=== PATIENT | female | born 1955 | race Caucasian/White ===

== ENCOUNTER 2020-05-19 15:05 | Outpatient (CLI) | payer OTHER, SELFPAY ==
--- NOTE | ~2020-05-19 | MM_ITS ---
EXAMINATION: MM screening [facility] BI w vladimir HISTORY: Screening mammogram TECHNIQUE: Craniocaudal and mediolateral oblique 3-D tomosynthesis images were obtained and synthetic 2-D images were generated. CAD analysis was submitted and interpreted. COMPARISON: 05/28/2018, 05/19/2018, 05/08/2017 BREAST PARENCHYMAL COMPOSITION: There are scattered areas of fibroglandular density. FINDINGS: Scattered benign-appearing calcifications are present. There is no evidence of suspicious m ass, calcification, or architectural distortion to suggest malignancy in either breast. There has bee n no suspicious interval change. IMPRESSION: 1. No mammographic evidence of malignancy. 2. Recommend routine screening mammography in one year. BI-RADS Category 2: Benign finding(s). Reviewed, dictated and finalized at location A.
== END 2020-05-19 15:06 | disposition home or self-care (01) ==
LOC: ANHIMG 15:33
PROVIDERS: PCP Nurse Practitioner Family; Visit Provider Nurse Practitioner Family
DX: Z12.31 Encounter for screening mammogram for malignant neoplasm of breast (principal)
CPT/HCPCS: 77063; 77067

== ENCOUNTER 2020-09-15 14:39 | Outpatient (CLI) | payer OTHER, SELFPAY ==
--- NOTE | ~2020-09-15 | XR_ITS ---
EXAMINATION: XR chest 2V 09/15/2020 15:20 INDICATION: Cough and shortness of breath. PROCEDURE: 2 view chest COMPARISON: 08/29/2016 FINDINGS: The lungs are clear. The cardiomediastinal silhouette is within normal limits. There are no pleural effusions. There is no pneumothorax suspected. IMPRESSION: 1: NO ACUTE CARDIOPULMONARY DISEASE. Reviewed, dictated and finalized at location A. ERS SUPERVISOR
== END 2020-09-15 14:40 | disposition home or self-care (01) ==
LOC: ANHIMG 14:46
PROVIDERS: PCP Family Medicine; Visit Provider Nurse Practitioner Family
DX: R05 Cough (principal)
CPT/HCPCS: 71046

== ENCOUNTER 2020-10-05 09:36 | Outpatient (CLI) | payer OTHER, SELFPAY ==
--- NOTE | 2020-10-05 09:39 | EST_ITS ---
Patient Info Name: Bess Miranda Age: 65 years : 1955 Gender: Female Ht: 61 in Wt: 190 lbs BSA: 1.97 m2 Exam Date: 10/05/2020 9:54 AM Exam Location: [facility] Stress Patient Status: Outpatient Admit Date: 10/05/2020 Staff Ordering Physician: Yumiko Quach NP Attending Provider: Yumiko Quach NP Exercise Technologist: Francisca Li RDCS Exercise Physician: Kai No DO Exam Type: CA stress test treadmill Study Info Indications R06.00 - Dyspnea, unspecified A treadmill exercise stress test was performed. Summary 1. 1. Negative Dung exercise stress test for ischemic ST changes by ECG criteria. 2. 2. Reduced functional capacity, achieving 6.5 METs of workload. 3. 3. Baseline hypertension. 4. 4. Appropriate HR response to exercise. 5. 5. Appropriate HR recovery at 1 minute post exercise. 6. 6. No imaging with stress testing. 7. 7. Patient informed of the above results. Protocol: Dung Stress ECG Details Stage: REST Duration (min): 2 min : 5 sec Speed (mph): 0.0 Grade (%): 0 HR (bpm): 77 SBP (mmHg): 163 DBP (mmHg): 94 METS: --- Stage: REST Duration (min): 14 min : 3 sec Speed (mph): 0.0 Grade (%): 0 HR (bpm): 78 SBP (mmHg): 163 DBP (mmHg): 94 METS: --- Stage: STAGE 1 Duration (min): 1 min : 0 sec Speed (mph): 1.7 Grade (%): 10 HR (bpm): 103 SBP (mmHg): 163 DBP (mmHg): 94 METS: --- Stage: STAGE 1 Duration (min): 2 min : 0 sec Speed (mph): 1.7 Grade (%): 10 HR (bpm): 117 SBP (mmHg): 163 DBP (mmHg): 94 METS: --- Stage: STAGE 1 Duration (min): 3 min : 0 sec Speed (mph): 1.7 Grade (%): 10 HR (bpm): 126 SBP (mmHg): 169 DBP (mmHg): 78 METS: --- Stage: STAGE 2 Duration (min): 1 min : 0 sec Speed (mph): 2.5 Grade (%): 12 HR (bpm): 140 SBP (mmHg): 169 DBP (mmHg): 78 METS: --- Stage: STAGE 2 Duration (min): 1 min : 0 sec Speed (mph): 2.5 Grade (%): 12 HR (bpm): 140 SBP (mmHg): 169 DBP (mmHg): 78 METS: --- Stage: RECOVERY Duration (min): 0 min : 59 sec Speed (mph): 0.0 Grade (%): 0 HR (bpm): 121 SBP (mmHg): 183 DBP (mmHg): 76 METS: --- Stage: RECOVERY Duration (min): 1 min : 59 sec Speed (mph): 0.0 Grade (%): 0 HR (bpm): 101 SBP (mmHg): 183 DBP (mmHg): 76 METS: --- Stage: RECOVERY Duration (min): 2 min : 59 sec Speed (mph): 0.0 Grade (%): 0 HR (bpm): 92 SBP (mmHg): 185 DBP (mmHg): 80 METS: --- Stage: RECOVERY Duration (min): 3 min : 59 sec Speed (mph): 0.0 Grade (%): 0 HR (bpm): 88 SBP (mmHg): 185 DBP (mmHg): 80 METS: --- Stage: RECOVERY Duration (min): 4 min : 59 sec Speed (mph): 0.0 Grade (%): 0 HR (bpm): 87 SBP (mmHg): 172 DBP (mmHg): 85 METS: --- Stage: RECOVERY Duration (min):
== END 2020-10-05 09:37 | disposition home or self-care (01) ==
PROVIDERS: PCP Nurse Practitioner Family; Visit Provider Nurse Practitioner Family
DX: R06.00 Dyspnea, unspecified (principal)
CPT/HCPCS: 93017

== ENCOUNTER 2020-10-26 09:36 | Outpatient (CLI) | payer OTHER, SELFPAY ==
--- NOTE | ~2020-10-26 | XR_ITS ---
EXAMINATION: XR hip LT 2V w AP pelvis DATE: 10/26/2020 09:55 INDICATION: Left hip pain post fall one month prior TECHNIQUE: Anteroposterior view of the pelvis and anteroposterior and frog-leg lateral views of the l eft hip were obtained. COMPARISON: None. FINDINGS: Mild lumbar levoscoliosis with moderate to severe spondylosis. Normal alignment at both hips. No frac ture or suspected avascular necrosis. Mild bilateral hip and sacroiliac osteoarthritis. IMPRESSION: 1. Mild bilateral hip and sacroiliac osteoarthritis. No acute osseous abnormality. 2. Mild lumbar levoscoliosis with moderate to severe spondylosis. Reviewed, dictated and finalized at location B. MAN IMPRESSION: 1. Mild bilateral hip and sacroiliac osteoarthritis. No acute osseous abnormali ty. 2. Mild lumbar levoscoliosis with moderate to severe spondylosis.
== END 2020-10-26 09:37 | disposition home or self-care (01) ==
LOC: ANHIMG 09:42
PROVIDERS: PCP Nurse Practitioner Family; Visit Provider Nurse Practitioner Family
DX: M25.552 Pain in left hip (principal); M16.0 Bilateral primary osteoarthritis of hip; M41.86 Other forms of scoliosis, lumbar region; M47.816 Spondylosis without myelopathy or radiculopathy, lumbar region
CPT/HCPCS: 73502

== ENCOUNTER 2020-12-06 17:15 | Outpatient (RCR) | payer OTHER, SELFPAY ==
--- NOTE | 2020-11-07 13:55 | PTOPEVAL ---
Thank you for referring Bess Miranda to [facility].? The patient is scheduled to be seen for therapy?2 x/week for 6 weeks. Please review, sign, date and return this plan of care ANDREWS. I agree with and certify that the following plan of care is medically necessary. Referring Physician Date Attending Provider: Yumiko Quach NP Referring Provider: Yumiko Quach NP Physical Therapy Evaluation Problem Diagnosis left hip pain Onset 6 months Subjective Information She has increased pain with Query Text:As Reported By Patient/ prolonged sitting. She has Family increased pain and limitations with steps, prolonged sitting in the car, initial pressure on left LE after prolonged sitting. She c/o LE fatigue with prolonged standing for cooking task. She is limited with carrying objects or squating motion. She has radiating left leg pain with bowel movement. C/o stiffness and cramping of LE's with supine position. She walks her dog daily for 20' without limitations. Diagnostic Tests X-Rays For This Problem Yes: Mild bilateral hip and sacroiliac osteoarthritis. Pain Assessment Left Hip(s) Reported Pain Level 0 Pain Description Aching,Numbness,Radiating, Tingling Pain Frequency Chronic Lowest Pain Intensity 0 Greatest Pain Intensity 6 Pain Aggravating Factors Coughing/Sneezing,Lifting, Prolonged Position,Sitting, Weight Bearing/Standing Pain Behaviors None Lower Extremity Range of Motion General Lower Extremity Range of Motion Reason Not Measured WNL/Left,WNL/Right Lower Extremity Muscle Strength Testing Hip Strength Right Hip Flexion Strength 4- Good - Hip Extension Strength 3 Fair Hip Abduction Strength 3- Fair - Left Hip Flexion Strength 3 Fair Hip Extension Strength 3 Fair Hip Abduction Strength 3- Fair - Knee Strength Right Knee Flexion Strength 3+ Fair + Knee Extension Strength 4+ Good + Left Knee Flexion Strength 3+ Fair + Knee Extension Strength 4+ Good + Ankle Strength Bilateral Ankle Dorsiflexion Strength 5 Normal Muscle Length Testing Two-Joint Hip Flexor Shortened Muscles Short (R) Iliopsoas,Short (L)
--- NOTE | 2020-12-04 12:38 | PCPTNOTE ---
Patient called & cancelled scheduled appointment this date due to conflict with appointment.
--- NOTE | 2020-12-19 07:58 | PCPTNOTE ---
Admitting Provider: Attending Provider: Yumiko Quach NP Patient:Bess Miranda Date of :1955 Discharge Note Patient has not returned for any further treatments since 12/06/2020, therefore she will be discharged at this time. Patient?s initial visit was on 11/07/2020 12:30 and she had a total of _ visits. The goals have been (met, not met, partially met). Thank you for referring this patient to [facility]. Please review, sign, date and return this discharge summary ANDREWS. I have been updated about the patient's current status and I agree with discharge from the above service at this time. Referring Physician Date
--- NOTE | 2020-12-19 07:58 | PCPTNOTE ---
Admitting Provider: Attending Provider: Yumiko Quach NP Patient:Bess Miranda Date of :1955 Discharge Note Patient has not returned for any further treatments since 12/06/2020, therefore she will be discharged at this time. Patient?s initial visit was on 11/07/2020 12:30 and she had a total of 7 visits with 4 cancelled visits. The goals have been not met. Thank you for referring this patient to [facility]. Please review, sign, date and return this discharge summary ANDREWS. I have been updated about the patient's current status and I agree with discharge from the above service at this time. Referring Physician Date
== END 2020-12-19 10:11 | disposition home or self-care (01) ==
LOC: ANHPT 17:15
PROVIDERS: PCP Nurse Practitioner Family; Referring Provider Nurse Practitioner Family; Visit Provider Nurse Practitioner Family
DX: M25.552 Pain in left hip (principal)
CPT/HCPCS: 97110; 97162; 97530

== ENCOUNTER 2021-08-18 08:20 | Emergency (ER) | payer OTHER, SELFPAY ==
--- NOTE | ~2021-08-18 | XR_ITS ---
EXAMINATION: XR ribs RT 2V w CXR 2V EXAM DATE: 08/18/2021 09:10 INDICATION: Right Lower Lateral rib pain, Leaned On Hard Surface, SOB . TECHNIQUE: Frontal projection of the upper right ribs, frontal projection of the lower right ribs, ob lique projection of the right ribs, frontal and lateral chest x-ray(s) for interpretation. Comparison is made to prior examination from 09/15/2020. FINDINGS: There is acute closed posttraumatic nondisplaced right 8th rib fracture anteriorly, finding indicated on the examination. No other rib fractures identified. There is mild lumbar levoscoliosis. No confluent consolidation, pneumothorax or pleural effusion suspected. Heart is upper limits of nor mal in size. IMPRESSION: Acute right 8th rib fracture. No pneumothorax. Reviewed, dictated and finalized at location A. NOMY RESEARCH MANAGER
[2021-08-18 08:26] VITALS: PULSE 112; RESP 22; TEMP 36.7; O2SAT 97
--- NOTE | 2021-08-18 08:58 | ED.GENADULT ---
HPI - General Adult General Chief complaint: Chest Pain Stated complaint: right rib injury Time Seen by Provider: 08/18/21 08:34 Source: patient Mode of arrival: ambulatory Limitations: no limitations History of Present Illness HPI narrative: Patient is a 66-year-old female complaining of right lower rib pain, 8 out of 10, sharp, worse with movement, palpation, coughing or deep breaths started after she was picking up something to throw in the dumpster and heard something pop, I think I broke my ribs , 3 days ago. Patient denies any shortness of breath, abdominal pain, nausea, vomiting, diaphoresis, fever or chills. Related Data Home Medications Medication Instructions Recorded Confirmed multivitamin 1 tablet PO DAILY 09/09/19 08/13/21 alendronate 70 mg-cholecalciferol 1 tablet PO WEEKLY 01/16/21 08/13/21 (vitamin D3) 2,800 unit tablet Allergies Allergy/AdvReac Type Severity Reaction Status Date / Time cyclobenzaprine Allergy Unknown Unknown Verified 08/13/21 11:11 Review of Systems Review of Systems: All systems reviewed & are unremarkable except as noted in HPI and below Constitutional: Constitutional: Denies body ache(s), Denies chills, Denies excessive sweating, Denies fatigue, Denies fever(s), Denies headache(s), Denies lethargy, Denies malaise, Denies weakness and Denies weight loss Eyes: Eyes: Denies blurry vision, Denies change in vision and Denies loss of vision ENT: Denies dizziness, Denies ear discharge, Denies headache(s), Denies lip swelling, Denies epistaxis, Denies nasal congestion, Denies neck pain, Denies throat swelling and Denies tongue swelling Cardiovascular: Cardiovascular: Denies chest pain, Denies chest pain at rest, Denies chest pain with activity, Denies diaphoresis, Denies rapid heart rate, Denies edema, Denies irregular heart rhythm, Denies lightheadedness, Denies palpitations, Denies dyspnea and Denies dyspnea on exertion Respiratory: Respiratory: Denies chest congestion, Denies cough, Denies hemoptysis, Denies dyspnea and Denies dyspnea on exertion Gastrointestinal: Gastrointestinal: Denies abdominal pain, Denies melena, Denies hematochezia, Denies diarrhea, Denies nausea, Denies vomiting and Denies hematemesis Musculoskeletal: Musculoskeletal: Denies abnormal gait, Denies deformity, Denies joint swelling, Denies limited range of motion, Denies neck pain and Denies numbness Neurologic: Denies Abnormal speech present, Denies abnormal gait, Denies confusion, Denies dizziness, Denies headache(s), Denies focal weakness, Denies loss of vision, Denies numbness, Denies Other visual disturbances, Denies Sensory deficit (Neuro) and Denies weakness Psychiatric: Psychiatric: Denies confusion, Denies depression, Denies auditory hallucinations, Denies homicidal ideation and Denies suicidal ideation Endocrine: Endocrine: Denies cold intolerance, Denies excessive sweating, Denies fatigue, Denies heat intolerance and Denies palpitations Hematologic/Lymphatic: Hematologic/Lymphatic: Denies easy bleeding and Denies easy bruising Allergic/Immunologic: Allergic/Immunologic: Denies lip swelling, Denies throat swelling and Denies tongue swelling PMFSH Past Medical History Medical History Essential (primary) hypertension Gastric ulcer GERD without esophagitis History of kidney stones Hyperlipidemia Left hip pain Vaginal spotting Surgical History Surgical History H/O: hysterectomy Family History Family History Grandparent Hypertension Malignant neoplasm of prostate Family history of heart disease in male family member before age 55 Diabetes mellitus Sibling Family history of rheumatoid arthritis Mother Family history of malignant neoplasm Father Family history of heart disease in male family member before age 55 Other Family hist
[2021-08-18] MEDS: HYDROcodone/acetaminophen (*CRX) 5-325 MG TABLET 1 TAB PO (09:10)
[2021-08-18] MEDS: KETOROLAC 30 MG/ML VIAL (*BKC) IM (09:11)
== END 2021-08-18 10:45 | disposition home or self-care (01) ==
PROVIDERS: Emergency Provider Emergency Medicine; PCP Nurse Practitioner Family
DX: S22.31XA Fracture of one rib, right side, initial encounter for closed fracture (principal); I10 Essential (primary) hypertension; K21.9 Gastro-esophageal reflux disease without esophagitis; Z87.442 Personal history of urinary calculi; E78.5 Hyperlipidemia, unspecified; X50.9XXA Other and unspecified overexertion or strenuous movements or postures, initial encounter
CPT/HCPCS: 71046; 71100; 96372; 99283; A9270; J1885

== ENCOUNTER 2021-12-17 10:15 | Outpatient (CLI) | payer OTHER, SELFPAY ==
--- NOTE | ~2021-12-17 | MM_ITS ---
EXAMINATION: MM screening [facility] BI w vladimir HISTORY: Screening mammogram TECHNIQUE: Craniocaudal and mediolateral oblique 3-D tomosynthesis images were obtained and synthetic 2-D images were generated. Bilateral rotated lateral craniocaudal views. CAD analysis was submitted and interpreted. COMPARISON: 05/19/2020 bilateral screening mammogram 05/28/2018 diagnostic right mammogram 05/19/2018 bilateral screening mammogram BREAST PARENCHYMAL COMPOSITION: There are scattered areas of fibroglandular density. FINDINGS: Biopsy marker on the right seminal and history of prior benign right stereotactic breast bi opsy. Bilateral scattered benign calcifications. There is no evidence of suspicious mass, calcificati on, or architectural distortion to suggest malignancy in either breast. There has been no suspicious interval change. IMPRESSION: 1. No mammographic evidence of malignancy. 2. Recommend routine screening mammography in one year. BI-RADS Category 2: Benign finding(s). Reviewed, dictated and finalized at location A.
== END 2021-12-17 10:16 | disposition home or self-care (01) ==
LOC: ANHIMG 10:17
PROVIDERS: PCP Nurse Practitioner Family; Visit Provider Nurse Practitioner Family
DX: Z12.31 Encounter for screening mammogram for malignant neoplasm of breast (principal)
CPT/HCPCS: 77063; 77067

== ENCOUNTER 2022-07-16 09:16 | Outpatient (CLI) | payer OTHER, MEDICAID, SELFPAY ==
[2022-07-16 19:57] LABS: Basophils Absolute Auto 0.1 K/mm3 (0.0-0.1); Basophils Percent Auto 0.6 % (0.2-1.2); Eosinophils Absolute Auto 0.2 K/mm3 (0-0.3); Eosinophils Percent Auto 2.3 % (0-4.4); Hematocrit 46.7 % (37.0-47.0); Hemoglobin 14.9 g/dL (12.0-15.0); Immature Granulocyte Absolute 0.02 K/mm3 (0.00-0.031); Immature Granulocyte Percent A 0.3 % (0-0.5); Lymphocytes Absolute Auto 1.74 K/mm3 (0.9-3.2); Lymphocytes Percent Auto 22.1 % (18.3-44.2); Mean Corpuscular HGB Conc 31.9 g/dl (32-36); Mean Corpuscular Hemoglobin 29.6 pg (26-34); Mean Corpuscular Volume 92.8 fl (80-100); Mean Platelet Volume 12.4 fl (7.4-10.4); Monocytes Absolute Auto 0.8 K/mm3 (0.1-0.6); Monocytes Percent Auto 9.6 % (2.6-8.5); Neutrophils Absolute Auto 5.1 K/mm3 (1.3-6.7); Neutrophils Percent Auto 65.1 % (45.5-73.1); Platelet Count Result 220 k/mm3 (150-375); Red Blood Count 5.03 M/mm3 (4.2-5.4); Red Cell Distribution Width 12.6 % (11.5-14.5); White Blood Count 7.9 K/mm3 (4.5-10.0)
[2022-07-16 20:24] LABS: LDL Cholesterol Direct 96 mg/dL
[2022-07-16 20:38] LABS: Vitamin D 25 Hydroxy 25.2 ng/mL
[2022-07-16 20:49] LABS: Hemoglobin A1C 11.7 % (<5.7)
[2022-07-16 21:29] LABS: Alanine Aminotransferase 94 U/L (6-35); Albumin Level 4.2 g/dL (3.5-5.1); Alkaline Phosphatase 111 U/L (38-126); Anion Gap 12 mmol/L (8-16); Aspartate Amino Transferase 77 U/L (14-36); Bilirubin,Total 0.5 mg/dL (0.2-1.3); Blood Urea Nitrogen 14 mg/dL (7-17); Calcium 9.4 mg/dL (8.4-10.2); Carbon Dioxide 27 mmol/L (22-30); Chloride 98 mmol/L (98-107); Cholesterol 166 mg/dL (0-200); Estimated Glomerular Filt Rate > 60; Glucose 252 mg/dL (65-110); HDL Direct 39 mg/dL; Potassium 4.3 mmol/L (3.4-5.0); Sodium 137 mmol/L (137-145); Triglycerides 208 mg/dL (<150)
== END 2022-07-16 09:17 | disposition home or self-care (01) ==
LOC: ANHGOSHLAB 09:22
PROVIDERS: PCP Nurse Practitioner Family; Visit Provider Nurse Practitioner Family
DX: E78.5 Hyperlipidemia, unspecified (principal); E55.9 Vitamin D deficiency, unspecified; I10 Essential (primary) hypertension; E11.9 Type 2 diabetes mellitus without complications; E03.9 Hypothyroidism, unspecified
CPT/HCPCS: 36415; 80053; 80061; 82306; 83036; 84443; 85025

== ENCOUNTER 2022-08-19 10:27 | Outpatient (CLI) | payer OTHER, MEDICAID, SELFPAY ==
--- NOTE | ~2022-08-19 | DEXA_ITS ---
Bone Density Report Name: KATY JACKSON Age: 67 Sex: Female Ethnicity: White Date of : 1955 Indication: postmenopausal; screening for osteoporosis; height loss; asthma or emphysema; hysterectomy; Referring Provider: LISA SPARKS Study: Bone densitometry was performed. Exam Date: August 19, 2022 Accession number: [id number] Bone Density: Region BMD T-score Z-score Classification AP Spine(L1-L4) 1.011 -0.3 1.5 Normal Femoral Neck (Left) 0.706 -1.3 0.3 Osteopenia Total Hip (Left) 0.942 0.0 1.3 Normal Femoral Neck (Right) 0.692 -1.4 0.2 Osteopenia Total Hip (Right) 0.983 0.3 1.6 Normal Total Hip Mean 0.963 0.2 1.5 Normal World Health Organization criteria for BMD impression classify patients as: Normal (T-score at or above -1.0), Osteopenia (T-score between -1.0 and -2.5), or Osteoporosis (T-score at or below -2.5). 10-year Fracture Risk(1): Major Osteoporotic Fracture 8.5% Hip Fracture 0.9% Reported Risk Factors: [place] (), Neck BMD=0.692, BMI=33.6 (1) FRAX(R) Version 3.08. Fracture probability calculated for an untreated patient. Fracture probability may be lower if the patient has received treatment. Previous Exams: Region Exam Age BMD T-score BMD Change BMD Change Date g/cm2 vs Baseline vs Previous AP Spine (L1-L4) 08/19/2022 67 1.011 -0.3 0.021 (2.2%) 0.021 (2.2%) 05/19/2018 63 0.990 -0.5 Total Hip(Left) 08/19/2022 67 0.942 0.0 -0.056 (-5.6%) -0.056 (-5.6%) 05/19/2018 63 0.999 0.5 Total Hip(Right) 08/19/2022 67 0.983 0.3 0.035 (3.7%)* 0.035 (3.7%)* 05/19/2018 63 0.948 0.1 *Denotes significance at 95% confidence level, LSC for AP Spine = 0.022 g/cm2, LSC for Total Hip = 0.027 g/cm2 Clinical Information Provided by Patient: Has the following medical conditions: Asthma or Emphysema, Hysterectomy Patient maximum height was 62 Menopause Age: 51 Does not regularly consume dairy products Drinks caffeinated beverages Onset of menses at age 13 Number of children 0 Impression: The patient has low bone mass, based on the Right Femoral Neck T-score. The patient has an estimated ten-year risk of hip fracture of 0.9% and an estimated ten-year risk of major fracture of 8.5%, based on the WHO FRAX algorithm. The BMD for the Total Hip(Left) decreased, changing by -5.6% since the last DXA exam. Discussion: BONE DENSITY IS LOW AT ONE OR MORE SKELETAL SITES. Thi
== END 2022-08-19 10:28 | disposition home or self-care (01) ==
LOC: ANHIMG 10:29
PROVIDERS: PCP Nurse Practitioner Family; Visit Provider Nurse Practitioner Family
DX: Z78.0 Asymptomatic menopausal state (principal); M85.89 Other specified disorders of bone density and structure, multiple sites
CPT/HCPCS: 77080

== ENCOUNTER 2022-12-23 10:31 | Outpatient (CLI) | payer OTHER, MEDICAID, SELFPAY ==
[2022-12-23 11:49] LABS: Alanine Aminotransferase 109 U/L (6-35); Albumin Level 4.6 g/dL (3.5-5.1); Alkaline Phosphatase 103 U/L (38-126); Anion Gap 11 mmol/L (8-16); Aspartate Amino Transferase 108 U/L (14-36); Bilirubin,Total 0.6 mg/dL (0.2-1.3); Blood Urea Nitrogen 12 mg/dL (7-17); Calcium 9.6 mg/dL (8.4-10.2); Carbon Dioxide 32 mmol/L (22-30); Chloride 94 mmol/L (98-107); Estimated Glomerular Filt Rate > 60; Glucose 199 mg/dL (65-110); Potassium 3.8 mmol/L (3.4-5.0); Sodium 137 mmol/L (137-145)
[2022-12-23 12:23] LABS: Vitamin D 25 Hydroxy 50.9 ng/mL
[2022-12-23 12:28] LABS: Hemoglobin A1C 8.8 % (<5.7)
== END 2022-12-23 10:32 | disposition home or self-care (01) ==
LOC: ANHLAB 10:35
PROVIDERS: PCP Family Medicine; Visit Provider Nurse Practitioner Family
DX: E11.9 Type 2 diabetes mellitus without complications (principal); I10 Essential (primary) hypertension; E55.9 Vitamin D deficiency, unspecified
CPT/HCPCS: 36415; 80053; 82306; 83036

== ENCOUNTER 2023-04-10 15:35 | Outpatient (CLI) | payer OTHER, MEDICAID, SELFPAY ==
[2023-04-10 17:07] LABS: Basophils Absolute Auto 0.1 K/mm3 (0.0-0.1); Basophils Percent Auto 0.5 % (0.2-1.2); Eosinophils Absolute Auto 0.1 K/mm3 (0-0.3); Eosinophils Percent Auto 1.2 % (0-4.4); Hematocrit 45.7 % (37.0-47.0); Hemoglobin 14.8 g/dL (12.0-15.0); Immature Granulocyte Absolute 0.04 K/mm3 (0.00-0.031); Immature Granulocyte Percent A 0.4 % (0-0.5); Lymphocytes Absolute Auto 2.27 K/mm3 (0.9-3.2); Lymphocytes Percent Auto 24.1 % (18.3-44.2); Mean Corpuscular HGB Conc 32.4 g/dl (32-36); Mean Corpuscular Hemoglobin 29.7 pg (26-34); Mean Corpuscular Volume 91.8 fl (80-100); Mean Platelet Volume 12.8 fl (7.4-10.4); Monocytes Absolute Auto 0.8 K/mm3 (0.1-0.6); Monocytes Percent Auto 8.9 % (2.6-8.5); Neutrophils Absolute Auto 6.1 K/mm3 (1.3-6.7); Neutrophils Percent Auto 64.9 % (45.5-73.1); Platelet Count Result 229 k/mm3 (150-375); Red Blood Count 4.98 M/mm3 (4.2-5.4); Red Cell Distribution Width 12.7 % (11.5-14.5); White Blood Count 9.4 K/mm3 (4.5-10.0)
== END 2023-04-10 15:36 | disposition home or self-care (01) ==
LOC: ANHGOSHLAB 15:36
PROVIDERS: PCP Family Medicine; Visit Provider Nurse Practitioner Family
DX: R30.0 Dysuria (principal)
CPT/HCPCS: 36415; 85025

== ENCOUNTER 2023-06-16 14:54 | Outpatient (CLI) | payer OTHER, MEDICAID, SELFPAY ==
--- NOTE | ~2023-06-16 | MM_ITS ---
EXAMINATION: MM screening [facility] BI w vladimir HISTORY: Screening TECHNIQUE: Craniocaudal and mediolateral oblique 3-D tomosynthesis images were obtained and synthetic 2-D images were generated. CAD analysis was submitted and interpreted. COMPARISON: Comparison to multiple prior studies sequentially, with oldest reviewed study dated 03/08. BREAST PARENCHYMAL COMPOSITION: There are scattered areas of fibroglandular density. FINDINGS: There is no evidence of suspicious mass, calcification, or architectural distortion to sugg est malignancy in either breast. There has been no suspicious interval change. IMPRESSION: 1. No mammographic evidence of malignancy. 2. Recommend routine screening mammography in one year. BI-RADS Category 1: Negative Reviewed, dictated and finalized at location A.
== END 2023-06-16 14:55 | disposition home or self-care (01) ==
PROVIDERS: PCP Family Medicine; Visit Provider Family Medicine
DX: Z12.31 Encounter for screening mammogram for malignant neoplasm of breast (principal)
CPT/HCPCS: 77063; 77067

== ENCOUNTER 2023-09-05 09:08 | Outpatient (CLI) | payer OTHER, SELFPAY ==
[2023-09-05 12:44] LABS: Basophils Absolute Auto 0.1 K/mm3 (0.0-0.1); Basophils Percent Auto 0.5 % (0.2-1.2); Eosinophils Absolute Auto 0.2 K/mm3 (0-0.3); Hematocrit 49.5 % (37.0-47.0); Hemoglobin 15.8 g/dL (12.0-15.0); Immature Granulocyte Absolute 0.02 K/mm3 (0.00-0.031); Immature Granulocyte Percent A 0.2 % (0-0.5); Lymphocytes Absolute Auto 2.18 K/mm3 (0.9-3.2); Lymphocytes Percent Auto 22.8 % (18.3-44.2); Mean Corpuscular HGB Conc 31.9 g/dl (32-36); Mean Corpuscular Hemoglobin 29.5 pg (26-34); Mean Corpuscular Volume 92.4 fl (80-100); Mean Platelet Volume 12.3 fl (7.4-10.4); Monocytes Absolute Auto 0.8 K/mm3 (0.1-0.6); Monocytes Percent Auto 8.4 % (2.6-8.5); Neutrophils Absolute Auto 6.3 K/mm3 (1.3-6.7); Neutrophils Percent Auto 66.1 % (45.5-73.1); Platelet Count Result 269 k/mm3 (150-375); Red Blood Count 5.36 M/mm3 (4.2-5.4); Red Cell Distribution Width 12.9 % (11.5-14.5); White Blood Count 9.6 K/mm3 (4.5-10.0)
[2023-09-05 12:53] LABS: Alanine Aminotransferase 68 U/L (6-35); Albumin Level 4.7 g/dL (3.5-5.1); Alkaline Phosphatase 114 U/L (38-126); Anion Gap 12 mmol/L (8-16); Aspartate Amino Transferase 54 U/L (14-36); Bilirubin,Total 0.7 mg/dL (0.2-1.3); Blood Urea Nitrogen 20 mg/dL (7-17); Calcium 10.2 mg/dL (8.4-10.2); Carbon Dioxide 30 mmol/L (22-30); Chloride 99 mmol/L (98-107); Cholesterol 205 mg/dL (0-200); Estimated Glomerular Filt Rate > 60; Glucose 181 mg/dL (65-110); HDL Direct 43 mg/dL; Sodium 141 mmol/L (137-145); Triglycerides 189 mg/dL (<150)
[2023-09-05 13:03] LABS: LDL Cholesterol Direct 118 mg/dL
[2023-09-05 13:06] LABS: Creatinine Urine 61.5 mg/dL
[2023-09-05 13:08] LABS: MALB Creatinine Ratio 31.5 mg/g (0-30); Microalbumin Urine Random 19.4 mg/L (0-16.7)
[2023-09-05 13:13] LABS: Vitamin D 25 Hydroxy 36.1 ng/mL
[2023-09-05 13:52] LABS: Hemoglobin A1C 8.3 % (<5.7)
== END 2023-09-05 09:09 | disposition home or self-care (01) ==
LOC: ANHGOSHLAB 09:11
PROVIDERS: PCP Family Medicine; Visit Provider Family Medicine
DX: E78.5 Hyperlipidemia, unspecified (principal); R06.00 Dyspnea, unspecified; I10 Essential (primary) hypertension; E55.9 Vitamin D deficiency, unspecified; E11.9 Type 2 diabetes mellitus without complications; E53.8 Deficiency of other specified B group vitamins
CPT/HCPCS: 36415; 80053; 80061; 82043; 82306; 82607; 83036; 84443; 85025

== ENCOUNTER 2024-02-16 10:57 | Outpatient (CLI) | payer OTHER, SELFPAY ==
[2024-02-16 13:25] LABS: Basophils Absolute Auto 0.1 K/mm3 (0.0-0.1); Basophils Percent Auto 0.5 % (0.2-1.2); Eosinophils Absolute Auto 0.2 K/mm3 (0-0.3); Hematocrit 49.3 % (37.0-47.0); Hemoglobin 15.9 g/dL (12.0-15.0); Immature Granulocyte Absolute 0.03 K/mm3 (0.00-0.031); Immature Granulocyte Percent A 0.3 % (0-0.5); Lymphocytes Absolute Auto 2.37 K/mm3 (0.9-3.2); Lymphocytes Percent Auto 25.8 % (18.3-44.2); Mean Corpuscular HGB Conc 32.3 g/dl (32-36); Mean Corpuscular Hemoglobin 29.2 pg (26-34); Mean Corpuscular Volume 90.6 fl (80-100); Mean Platelet Volume 12.1 fl (7.4-10.4); Monocytes Absolute Auto 0.8 K/mm3 (0.1-0.6); Monocytes Percent Auto 8.9 % (2.6-8.5); Neutrophils Absolute Auto 5.7 K/mm3 (1.3-6.7); Neutrophils Percent Auto 62.5 % (45.5-73.1); Platelet Count Result 261 k/mm3 (150-375); Red Blood Count 5.44 M/mm3 (4.2-5.4); Red Cell Distribution Width 13.1 % (11.5-14.5); White Blood Count 9.2 K/mm3 (4.5-10.0)
[2024-02-16 13:36] LABS: Alanine Aminotransferase 48 U/L (6-35); Albumin Level 4.7 g/dL (3.5-5.1); Alkaline Phosphatase 111 U/L (38-126); Anion Gap 11 mmol/L (4-12); Aspartate Amino Transferase 69 U/L (14-36); Bilirubin,Total 0.8 mg/dL (0.2-1.3); Blood Urea Nitrogen 21 mg/dL (7-17); Calcium 9.5 mg/dL (8.4-10.2); Carbon Dioxide 28 mmol/L (22-30); Chloride 100 mmol/L (98-107); Cholesterol 198 mg/dL (0-200); Estimated Glomerular Filt Rate > 60; Glucose 164 mg/dL (65-110); HDL Direct 46 mg/dL; Potassium 3.5 mmol/L (3.4-5.0); Sodium 139 mmol/L (137-145); Triglycerides 208 mg/dL (<150)
[2024-02-16 13:46] LABS: Vitamin D 25 Hydroxy 42.2 ng/mL
[2024-02-16 13:47] LABS: LDL Cholesterol Direct 120 mg/dL
[2024-02-16 14:02] LABS: Creatinine Urine 44.2 mg/dL
[2024-02-16 14:11] LABS: MALB Creatinine Ratio 30.5 mg/g (0-30); Microalbumin Urine Random 13.5 mg/L (0-16.7)
[2024-02-16 14:15] LABS: Hemoglobin A1C 7.6 % (<5.7)
== END 2024-02-16 10:58 | disposition home or self-care (01) ==
PROVIDERS: Nurse Practitioner Family; PCP Family Medicine; Visit Provider Family Medicine
DX: E78.5 Hyperlipidemia, unspecified (principal); E11.9 Type 2 diabetes mellitus without complications; E53.8 Deficiency of other specified B group vitamins; R06.00 Dyspnea, unspecified; I10 Essential (primary) hypertension; E55.9 Vitamin D deficiency, unspecified
CPT/HCPCS: 36415; 80053; 80061; 82043; 82306; 82607; 83036; 84443; 85025

== ENCOUNTER 2024-03-20 02:14 | Emergency (ER) | payer OTHER, SELFPAY ==
[2024-03-20] VITALS (28 sets, daily range): BP systolic 120–148; BP diastolic 71–78; PULSE 78–99; RESP 14–34; TEMP 37; O2SAT 88–98
--- NOTE | ~2024-03-20 | CT_ITS ---
EXAMINATION: CT abdomen pelvis w con DATE: 03/20/2024 03:56 INDICATION: Abdominal pain and nausea TECHNIQUE: Computed tomography (CT) of the abdomen and pelvis was performed with 100 CC Omnipaque 350 intravenous contrast. Automated exposure control and iterative reconstruction technique were employe d. Exam dose: 706.21 mGy-cm total exam DLP. COMPARISON: None. FINDINGS: Bilateral mild lower lobe predominantly dependent atelectasis. No consolidation at the lung bases. No pericardial or pleural effusion. Small sliding hiatal hernia. Small stones are noted in the dependent aspect of the gallbladder. No bowel wall thickening or perich olecystic fluid or fat stranding. The common bile duct does measure up to 12 mm, abnormal. Consider M REWRITE EDITOR for further evaluation. Diffuse hepatic steatosis. No hepatic, splenic, pancreatic or adrenal space-occupying mass lesion is noted. Hyperdense approximately 9 mm exophytic medial upper pole right renal cyst with attenuation of the 10 0 Hounsfield units or greater. An additional 9 mm medial upper pole left renal cyst is noted. The kid neys are otherwise unremarkable. No urinary tract calculus or hydroureteronephrosis. The uterus is absent. The urinary bladder is unremarkable. No adnexal masses. There is atherosclerotic calcification but normal caliber of the abdominal aorta. No intraperitoneal or retroperitoneal or pelvic mass lesion or adenopathy or ascites. Normal appendix. No bowel obstruction, bowel wall thickening, pneumatosis or intraperitoneal free air . Small fat-containing umbilical hernia. Bilateral fat-containing inguinal hernias. Thoracic and lumbar spondylosis including multilevel degenerative disease of the lumbar spine. No dodie picious osteolytic or osteoblastic lesions are noted. IMPRESSION: Cholelithiasis Common bile duct measures up to 12 mm. Consider MRCP for further evaluation Hepatic steatosis Small sliding hiatal hernia Normal appendix Left upper pole 9 mm cysts Reviewed, dictated and finalized at Location A. Reviewed, dictated and finalized at location A.
[2024-03-20 02:42] LABS: Basophils Percent Auto 0.2 % (0.2-1.2); Hematocrit 44.9 % (37.0-47.0); Immature Granulocyte Absolute 0.03 K/mm3 (0.00-0.031); Immature Granulocyte Percent A 0.3 % (0-0.5); Lymphocytes Absolute Auto 0.44 K/mm3 (0.9-3.2); Lymphocytes Percent Auto 4.4 % (18.3-44.2); Mean Corpuscular HGB Conc 33.4 g/dl (32-36); Mean Corpuscular Hemoglobin 29.8 pg (26-34); Mean Corpuscular Volume 89.1 fl (80-100); Mean Platelet Volume 11.6 fl (7.4-10.4); Monocytes Absolute Auto 0.1 K/mm3 (0.1-0.6); Monocytes Percent Auto 0.7 % (2.6-8.5); Neutrophils Absolute Auto 9.4 K/mm3 (1.3-6.7); Neutrophils Percent Auto 94.4 % (45.5-73.1); Platelet Count Result 201 k/mm3 (150-375); Red Blood Count 5.04 M/mm3 (4.2-5.4); Red Cell Distribution Width 13.2 % (11.5-14.5); White Blood Count 9.9 K/mm3 (4.5-10.0)
[2024-03-20] MEDS: SODIUM CHLORIDE 0.9% IV 1,000 ML 999 ML IV CONT (02:58)
[2024-03-20] MEDS: ONDANSETRON INJ 4 MG/2 ML VIAL IV PUSH (02:58)
[2024-03-20] MEDS: MORPHINE SULFATE (*CRX) 4 MG/ML INJ IV PUSH (02:58)
[2024-03-20 03:17] LABS: Alanine Aminotransferase 316 U/L (6-35); Albumin Level 4.6 g/dL (3.5-5.1); Alkaline Phosphatase 139 U/L (38-126); Anion Gap 13 mmol/L (4-12); Aspartate Amino Transferase 512 U/L (14-36); Blood Urea Nitrogen 14 mg/dL (7-17); Calcium 9.2 mg/dL (8.4-10.2); Carbon Dioxide 31 mmol/L (22-30); Chloride 97 mmol/L (98-107); Estimated Glomerular Filt Rate > 60; Glucose 248 mg/dL (65-110); Potassium 3.5 mmol/L (3.4-5.0); Sodium 141 mmol/L (137-145)
[2024-03-20 03:38] LABS: Lipase 6207 U/L (23-300)
[2024-03-20 04:23] LABS: Appearance Urine Clear (Clear); Bilirubin Urine Negative (Negative); Blood Urine Negative (Negative); Color Urine Yellow (Yellow); Glucose Urine UA 3+ mg/dL (Negative); Ketones Urine 1+ mg/dL (Negative); Leukocyte Esterase Ur Negative LEU/UL (Negative); Nitrate Urine Negative (Negative); Protein Urine Negative (Negative); pH Urine 6.5 (5.0-9.0)
--- NOTE | 2024-03-20 04:27 | ED.GENADULT ---
HPI - General Adult General Chief complaint: Abdominal Pain Stated complaint: bilateral hip pain, abd pain Time Seen by Provider: 03/20/24 02:36 History of Present Illness HPI narrative: Patient is a 68-year-old female who presents emergency department with chief complaint of abdominal pain and back pain. Patient reports that for last several days she has been having pain in her back reports that she has had fullness in her abdomen patient reports he tried to make herself vomit today after she ate a burger at [employer]. The patient reports that she has not really had a bowel movement today. Related Data Home Medications Medication Instructions Recorded Confirmed multivitamin 1 tablet PO DAILY 09/09/19 02/16/24 Allergies Allergy/AdvReac Type Severity Reaction Status Date / Time cyclobenzaprine Allergy Unknown Unknown Verified 03/20/24 02:23 Review of Systems Review of Systems: A 10 system review of systems was completed on the patient and is negative except for what is stated in the HPI. Nursing and ancillary documentation was reviewed. [facility] Past Medical History Medical History Dysuria Eczema Essential (primary) hypertension Mario blood in stool Gastric ulcer GERD without esophagitis Gum inflammation History of kidney stones Hyperlipidemia Left hip pain Mouth lesion Prediabetes (~02/2018) Vaginal spotting Vitamin D deficiency Weight loss Surgical History Surgical History H/O: hysterectomy Family History Family History Grandparent Hypertension Malignant neoplasm of prostate Family history of heart disease in male family member before age 55 Diabetes mellitus Sibling Family history of rheumatoid arthritis Mother Family history of malignant neoplasm Father Family history of heart disease in male family member before age 55 Other Family history of alcoholism Family history of arthritis Social History Social History Smoking status: Never smoker Alcohol intake: never Substance use: never Substance use type: does not use Lack of Transportation: No Lack of Food: Never True Current Housing: I Have Housing Concerned About Future Housing: No Difficulty Paying Gas/Electric Bills: No Difficulty Paying for Meds: No Currently Unemployed: No Education: Bachelor's Degree Difficulty w/ Childcare or Family Care: No Living arrangements: with family Occupation/Education: occupation Gender identity (if verbalized by the patient): Female Agree to blood products: Yes Exam Narrative: GENERAL: Well-appearing, well-nourished, and in no acute distress. HEAD: Normocephalic, atraumatic. EYES: PERRLA and EOMI. ENT: Nares clear, no rhinorrhea or epistaxis. Mucous membranes moist. NECK: Supple. CHEST: Clear to auscultation. No respiratory distress. HEART: Regular rate and rhythm. No murmur heard. Normal peripheral pulses. ABDOMEN: Soft, diffusely tender to palpation, nondistended, normal active bowel sounds. EXTREMITIES: Normal range of motion. No edema. SKIN: Warm, dry, no rash. NEURO: No focal deficits. Alert and oriented x3. PSYCH: Normal mood and affect. Course Vital Signs Vital signs: Vital Signs Temperature 37.0 C 03/20/24 02:20 Pulse Rate 94 03/20/24 02:20 Respiratory Rate 18 03/20/24 02:20 Blood Pressure 144/73 H 03/20/24 02:20 Pulse Oximetry 95 03/20/24 02:20 Oxygen Delivery Room Air 03/20/24 02:20 Temperature 37.0 C 03/20/24 02:20 Pulse Rate 94 03/20/24 02:20 Respiratory Rate 18 03/20/24 02:20 Blood Pressure 144/73 H 03/20/24 02:20 Pulse Oximetry 95 03/20/24 02:20 Oxygen Delivery Room Air 03/20/24 02:20 Medical Decision Making MDM Narrative Medi
[2024-03-20 04:45] LABS: Add Urine Microscopic? NO
[2024-03-20] MEDS: PIPERACILLN/TAZ 3.375GM/NS50ML 3.375 GM/50 ML BAG IVPB (06:33)
[2024-03-20] MEDS: MORPHINE SULFATE (*CRX) 2 MG/ML INJ IV PUSH (10:25)
== END 2024-03-20 10:39 | disposition short-term general hospital (02) ==
PROVIDERS: Emergency Provider Emergency Medicine; PCP Family Medicine
DX: K85.90 Acute pancreatitis without necrosis or infection, unspecified (principal); K83.8 Other specified diseases of biliary tract; I10 Essential (primary) hypertension; E55.9 Vitamin D deficiency, unspecified; K21.9 Gastro-esophageal reflux disease without esophagitis; R73.03 Prediabetes; Z87.442 Personal history of urinary calculi; Z90.710 Acquired absence of both cervix and uterus; Z79.84 Long term (current) use of oral hypoglycemic drugs; Z79.899 Other long term (current) drug therapy; K76.0 Fatty (change of) liver, not elsewhere classified; K44.9 Diaphragmatic hernia without obstruction or gangrene; N28.1 Cyst of kidney, acquired; K80.20 Calculus of gallbladder without cholecystitis without obstruction
CPT/HCPCS: 36415; 74177; 80053; 81003; 83690; 85025; 96361; 96365; 96375; 99285; J2270; J2405; J2543; J7030; Q9967

== ENCOUNTER 2024-05-06 12:06 | Outpatient (NON) | payer OTHER, SELFPAY ==
[2024-05-06 18:57] LABS: Add Urine Microscopic? NO; Appearance Urine Clear (Clear); Bilirubin Urine Negative (Negative); Blood Urine Negative (Negative); Color Urine Yellow (Yellow); Glucose Urine UA 3+ mg/dL (Negative); Ketones Urine Negative (Negative); Leukocyte Esterase Ur Negative LEU/UL (Negative); Nitrate Urine Negative (Negative); Protein Urine Negative (Negative); Urobilinogen Urine 0.2 mg/dL (<2.0); pH Urine 6.5 (5.0-9.0)
== END 2024-05-06 12:07 | disposition home or self-care (01) ==
LOC: ANHGOSHLAB 12:07
PROVIDERS: PCP Family Medicine; Visit Provider Nurse Practitioner Family
DX: R39.15 Urgency of urination (principal)
CPT/HCPCS: 81003

== ENCOUNTER 2024-08-24 09:30 | Outpatient (CLI) | payer OTHER, SELFPAY ==
[2024-08-24 12:05] LABS: Basophils Absolute Auto 0.1 K/mm3 (0.0-0.1); Basophils Percent Auto 0.6 % (0.2-1.2); Eosinophils Absolute Auto 0.2 K/mm3 (0-0.3); Eosinophils Percent Auto 2.4 % (0-4.4); Hematocrit 49.1 % (37.0-47.0); Hemoglobin 16.1 g/dL (12.0-15.0); Immature Granulocyte Absolute 0.03 K/mm3 (0.00-0.031); Immature Granulocyte Percent A 0.4 % (0-0.5); Lymphocytes Percent Auto 27.5 % (18.3-44.2); Mean Corpuscular HGB Conc 32.8 g/dl (32-36); Mean Corpuscular Hemoglobin 29.9 pg (26-34); Mean Corpuscular Volume 91.1 fl (80-100); Mean Platelet Volume 12.3 fl (7.4-10.4); Monocytes Absolute Auto 0.8 K/mm3 (0.1-0.6); Neutrophils Absolute Auto 4.7 K/mm3 (1.3-6.7); Neutrophils Percent Auto 59.1 % (45.5-73.1); Platelet Count Result 231 k/mm3 (150-375); Red Blood Count 5.39 M/mm3 (4.2-5.4); Red Cell Distribution Width 13.3 % (11.5-14.5)
[2024-08-24 12:24] LABS: Alanine Aminotransferase 58 U/L (6-35); Albumin Level 4.5 g/dL (3.5-5.1); Alkaline Phosphatase 100 U/L (38-126); Anion Gap 6 mmol/L (4-12); Aspartate Amino Transferase 47 U/L (14-36); Bilirubin,Total 0.7 mg/dL (0.2-1.3); Blood Urea Nitrogen 16 mg/dL (7-17); Calcium 9.6 mg/dL (8.4-10.2); Carbon Dioxide 34 mmol/L (22-30); Chloride 99 mmol/L (98-107); Cholesterol 226 mg/dL (0-200); Estimated Glomerular Filt Rate > 60; Glucose 155 mg/dL (65-110); HDL Direct 52 mg/dL; Potassium 4.2 mmol/L (3.4-5.0); Sodium 139 mmol/L (137-145); Triglycerides 252 mg/dL (<150)
[2024-08-24 12:28] LABS: Vitamin D 25 Hydroxy 33.6 ng/mL
[2024-08-24 12:35] LABS: LDL Cholesterol Direct 126 mg/dL
[2024-08-24 12:39] LABS: Hemoglobin A1C 7.9 % (<5.7)
== END 2024-08-24 09:31 | disposition home or self-care (01) ==
LOC: ANHGOSHLAB 09:31
PROVIDERS: PCP Family Medicine; Visit Provider Nurse Practitioner Family
DX: E55.9 Vitamin D deficiency, unspecified (principal); E11.9 Type 2 diabetes mellitus without complications; I10 Essential (primary) hypertension; E78.5 Hyperlipidemia, unspecified
CPT/HCPCS: 36415; 80053; 80061; 82306; 83036; 84443; 85025

== ENCOUNTER 2024-10-25 07:54 | Outpatient (CLI) | payer MEDICARE, SELFPAY ==
--- NOTE | ~2024-10-25 | MM_ITS ---
EXAMINATION: MM screening [facility] BI w vladimir HISTORY: Screening TECHNIQUE: Craniocaudal and mediolateral oblique 3-D tomosynthesis images were obtained and synthetic 2-D images were generated. CAD analysis was submitted and interpreted. COMPARISON: Comparison to multiple prior studies sequentially, with oldest reviewed study dated 05/08. BREAST PARENCHYMAL COMPOSITION: There are scattered areas of fibroglandular density. FINDINGS: There is no evidence of suspicious mass, calcification, or architectural distortion to sugg est malignancy in either breast. There has been no suspicious interval change. IMPRESSION: 1. No mammographic evidence of malignancy. 2. Recommend routine screening mammography in one year. BI-RADS Category 1: Negative Reviewed, dictated and finalized at location A. BILITIES SERVICES OFFICER
== END 2024-10-25 07:55 | disposition home or self-care (01) ==
LOC: ANHIMG 07:57
PROVIDERS: PCP Family Medicine; Visit Provider Nurse Practitioner Family
DX: Z12.31 Encounter for screening mammogram for malignant neoplasm of breast (principal)
CPT/HCPCS: 77063; 77067

== ENCOUNTER 2024-12-23 10:54 | Outpatient (CLI) | payer MEDICARE, SELFPAY ==
--- NOTE | ~2024-12-23 | DEXA_ITS ---
Bone Density Report Name: KATY JACKSON Age: 69 Sex: Female Ethnicity: White Date of : 1955 Indication: postmenopausal; screening for osteoporosis; height loss; asthma or emphysema; hysterectomy; Referring Provider: LISA SPARKS Study: Bone densitometry was performed. Exam Date: December 23, 2024 Accession number: [id number] Bone Density: Region BMD T-score Z-score Classification AP Spine(L1-L4) 1.012 -0.3 1.7 Normal Femoral Neck (Left) 0.591 -2.3 -0.6 Osteopenia Total Hip (Left) 0.907 -0.3 1.1 Normal Femoral Neck (Right) 0.717 -1.2 0.5 Osteopenia Total Hip (Right) 1.007 0.5 2.0 Normal Total Hip Mean 0.957 0.1 1.6 Normal World Health Organization criteria for BMD impression classify patients as: Normal (T-score at or above -1.0), Osteopenia (T-score between -1.0 and -2.5), or Osteoporosis (T-score at or below -2.5). 10-year Fracture Risk(1): Major Osteoporotic Fracture 12% Hip Fracture 2.3% Reported Risk Factors: [place] (), Neck BMD=0.591, BMI=34.8 (1) FRAX(R) Version 3.08. Fracture probability calculated for an untreated patient. Fracture probability may be lower if the patient has received treatment. Previous Exams: Region Exam Age BMD T-score BMD Change BMD Change Date g/cm2 vs Baseline vs Previous AP Spine (L1-L4) 12/23/2024 69 1.012 -0.3 0.023 (2.3%)# 0.001 (0.1%)# 08/19/2022 67 1.011 -0.3 0.021 (2.2%) 0.021 (2.2%) 05/19/2018 63 0.990 -0.5 Total Hip(Left) 12/23/2024 69 0.907 -0.3 -0.092 (-9.2%) -0.036 (-3.8%) 08/19/2022 67 0.942 0.0 -0.056 (-5.6%) -0.056 (-5.6%) 05/19/2018 63 0.999 0.5 Total Hip(Right) 12/23/2024 69 1.007 0.5 0.059 (6.2%)# 0.024 (2.4%)# 08/19/2022 67 0.983 0.3 0.035 (3.7%)* 0.035 (3.7%)* 05/19/2018 63 0.948 0.1 *Denotes significance at 95% confidence level, LSC for AP Spine = 0.022 g/cm2, LSC for Total Hip = 0.027 g/cm2 # Denotes dissimilar scan types or analysis methods Clinical Information Provided by Patient: Has used the following medications: Vitamin D Has the following medical conditions: Asthma or Emphysema, Hysterectomy Patient maximum height was 62 Menopause Age: 51 Does not regularly consume dairy products Drinks caffeinated beverages Onset of menses at age 13 Number of children 0 Impression: The patient has low bone mass, based on the Left Femoral Neck T-score. The patient has an estimated ten-year risk of hip fracture of 2.3% and an estimated ten-year risk of major fracture of 12%, based on the WHO FRAX algorithm. No significant bone loss was observed. Discussion: BONE DENSITY IS LOW AT ONE OR MORE SKELETAL SITES. This patient's lowest T-score is low at one or more skeletal sites. It meets the World Health Organization's (WHO) criteria for ?low bone mass? (T-score between -1.0 and -2.5). The patient's 10-year risk of fracture as calculated by FRAX is less than the threshold where pharmacological therapy is recommended by the National Osteoporosis Foundation (NOF). However, all treatment decisions require clinical judgment and consideration of individual patient factors, including patient preferences, comorbidities, previous drug use, risk factors not captured in the FRAX model (e.g., frailty, falls, vitamin D deficiency, increased bone turnover, interval significant decline in bone density) and possible under or overestimation of fracture risk by FRAX. The patient should follow a healthful lifestyle (good nutrition with adequate calcium and vitamin D, and appropriate weight-bearing exercise). Follow-Up: Consider repeating this study in 2 to 3 years to reassess this patient's status, or sooner if there is some new clinical indication. Reported by: YOVANI on 12/23/2024 11:39:00 AM. Reviewed, dictated and finalized at location [facility]
--- OUTSIDE RECORDS SUMMARY | 2024-12-23 12:07 | XMS_ITS | CONTINUITY OF CARE DOCUMENT ---
Author Name griselda villalobos Address Unknown Organization [facility] Address [address] [facility] [address] [place] [address] Phone [phone] Care Team Providers Care Lease Buyer Name Role Phone griselda villalobos Unavailable Unavailable INSURANCE PROVIDERS Payer name Policy type / Coverage type [place] red democrat ID [email or web address] insurance company [id number]
--- OUTSIDE RECORDS SUMMARY | 2024-12-23 12:07 | XMS_ITS | Continuity of Care Document ---
Author Organization [facility] Address [address] [place] [address] [address] [place] [address] Phone Care Team Providers Care Waistline Joiner Name Role Phone Beltran Treviño MD Unavailable Unavailable Procedures Procedure Date Office consultation, [facility] X-ray exam of knee, 1 or2 views 011 X-ray exam of knee, 1 or2 views 011 X-ray exam of both knees, standing Prolonged serv, w/o contact, 1st hr Advance Directives Directive Yes / No Effective Date File Name No Information Encounters Encounter Description Practice Location Reason(s) For Visit Diagnoses Date Provider Providers Copied on Encounter Office consultation, moderate-high [facility], [address] [place] [address], [id number], tel:[phone] [facility] CONTUSION OF KNEELOC PRIM OSTEOART-L/ LEGJOINT PAIN-L/LEG [facility]. [address] [place] [address], [place] [address], [place], [place], [id number], [place]. tel:[phone] Family History Family Member Type Diagnosis Age At Onset No Information Payers Payer name Insurance type Covered democrat ID Authoriza tivishal(s) [employer] [id number] Social History Type Description Quantity Date Captured Comments Sex Female Smoking Status No Information Chief Complaint And Reason For Visit No Information Reason For Referral Reason For Referral No Information History Of Present Illness Encounter Date Complaint History Of Prese nt Illness No Information Functional Status Date Functional Assessmen t No Information Instructions Date Instruction Additional Infor mation No Information Assessments Type Assessment Date No Information Patient Care Teams Name Effective Dates (start - stop) Status Members No Information
--- OUTSIDE RECORDS SUMMARY | 2024-12-23 12:07 | XMS_ITS | Clinical Summary ---
Author Organization [facility] [employer] Address [address] [place] [address] Care Team Providers Care Spring Coiling Machine Setter Name Role Phone Yumiko Quach NP Primary Care Provider [phone] Allergies Active Allergy Reactions Criticality Noted Date Comments Methocarbamol Anaphylaxis,Shortness of breath High 0 03/20/2024 Medications amLODIPine (NORVASC) 10 mg tablet Take 1 tablet (10 mg total) by mouth daily 09/19/20 20 Active fluticasone propionate (FLONASE) 50 mcg/actuation nasal spray SHAKE LIQUID AND USE 1 SPRAY IN EACH NOSTRIL DAILY 10/19/19 21 Active losartan-hydrochlo rothiazide (HYZAAR) 100-25 mg per tablet Take 1 tablet by mouth daily 10/19/19 21 Active lovastatin (MEVACOR) 20 mg tablet Take 1 tablet (20 mg total) by mouth daily 10/10/19 21 Active finasteride (PROPECIA) 1 mg tabletIndications: Androgenetic alopecia Take 1 tablet (1 mg total) by mouth daily 30 tablet 03/26/20 21 Active ondansetron ODT (ZOFRAN-ODT) 4 mg disintegrating tabletIndications: Nausea and Vomiting Take 1 tablet (4 mg total) by mouth every 6 (six) hours as needed for nausea or vomiting 20 tablet 03/25/20 24 Active Additional Information Patient not taking.Reported on 07/19/2024 HYDROcodone-acetam inophen (NORCO) 5-325 mg per tabletIndications: Pain Take 1 tablet by mouth every 4 (four) hours as needed for pain 15 tablet 03/25/20 24 Active Additional Information Patient not taking.Reported on 07/19/2024 Jardiance 25 mg tablet 07/12/20 Active loratadine (CLARITIN) 10 mg tablet Take 1 tablet (10 mg total) by mouth daily 05/13/20 Active metoprolol XL (TOPROL-XL) 50 mg extended release tablet Take 1 tablet (50 mg total) by mouth daily 05/13/20 Active omeprazole (PriLOSEC) 40 mg capsule Take 1 capsule (40 mg total) by mouth daily 06/01/20 24 Active Active Problems Problem Noted Date Diagnosed Date Abdominal pain 03/20/2024 Choledocholithiasis 03/20/2024 Surgical History Surgery Date Site/Laterality Comments HYSTERECTOMY 2008 Hysterectomy OTHER SURGICAL HISTORY 2007 torn mediscus lt knee TOTAL KNEE ARTHROPLASTY Bilateral Medical History Medical History Date Comments Asthma Asthma Hypertension Hypertension Family History Medical History Relation Name Comments Diabetes Other Family history of Diabetes mellitus; Heart disease Other Family history of Heart disease; Hypertension Other Family history of Hypertension; Relation Name Status Comments Other Social History Tobacco Use Types Packs/Day Years Used Date Smoking Tobacco: Never Passive Smoke Exposure: Never Smokeless Tobacco: Never Tobacco Cessation:Counseling Given: Not Answered Alcohol Use Standard Drinks/Week Comments No 0 (1 standard drink = 0.6 oz pur e alcohol) [facility] Utilities Answer Date Recorded In the past 12 months has [employer], gas, oil, or water [employer] threatened to shut off services in your home? No 03/22/2024 Social Connection and Isolat ion Panel [NHANES] Answer Date Recorded In a typical week, how many times do you talk on the phone with family, friends, or neighbors? More than three times a week 03/22/2024 How often do you get togethe r with friends or relatives? More than three times a week 03/22/2024 How often do you attend chur ch or gnosticist services? More than 4 times per year 03/22/2024 Do you belong to any clubs o r organizations such as adventist groups, unions, fraternal or athletic groups, or school groups? No 03/22/2024 How often do you attend meet ings of the clubs or organizations you belong to? Never 03/22/2024 Are you , , di vorced, , never , or living with a partner? Never 03/22/2024 Overall Financial Resource Strain (CARDIA) Answe r Date Recorded How hard is it for you to pa y for the very basics like food, housing, medical care, and heating? Not hard at all 03/22/2024 Hunger Vital Sign Answer Date Recorded Within the past 12 months, y ou worried that your food would run out before you got the money to buy more. Never true 03/22/20 24 Within the past 12 months, t he food you bought just didn't last and you didn't have money to get more. Never true 03/22/2024 PRAPARE - Transportation Answer Date Re corded In the past 12 months, has l ack of transportation kept you from medical appointments or from getting medications? No 02/28 In the past 12 months, has l ack of transportation kept you from meetings, work, or from getting things needed for daily living? No 03/22/2024 Housing Stability Vital Sign Answer Axel e Recorded In the last 12 months, was t here a time when you were not able to pay the mortgage or rent on time? No 03/22/2024 In the past 12 months, how m any times have you moved where you were living? 0 03/22/2024 At any time in the past 12 m [facility], were you homeless or living in a fci (including now)? No 03/22/2024 Personal Safety Answer Date Recorded Have you ever been in or are you currently in a harmful physical or emotional relationship or is someone making you feel afraid or unsafe? 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 Gender Identity Not on file Sexual Orientation Not on file Obstetrics History Last Filed Vital Signs Vital Sign Reading Time Taken Comments Blood Pressure 172/102 07/19/2024 9:41 AM CDT Pulse 65 07/19/2024 9:30 AM CDT Temperature 36.3 C (97.3 F) 07/19/2024 9:30 AM CDT Respiratory Rate 14 07/19/2024 9:30 AM CDT Oxygen Saturation 98% 07/19/2024 9:30 AM CDT Inhaled Oxygen Concentration - - Weight 74.4 kg (164 lb) 07/19/2024 9:30 AM CDT Height 156.2 cm (5' 1.5 ) 07/19/2024 9:30 AM CDT Body Mass Index 30.49 07/19/2024 9:30 AM CDT Plan of Treatment Health Maintenance Due Date Last Done Comments Breast Cancer Screening-Mammogram 1955 Colon Cancer Screening-Colonoscopy 1955 Depression Screening 1955 Hepatitis C Screening 1955 Osteoporosis Screening-Bone Density Scan 1956 DTaP/Tdap/Td Vaccine (1 - Tdap) 1967 Hepatitis B Screening 1974 Pneumococcal vaccine 65+ (1 of 1 - PCV) 2006 Zoster Vaccine (1 of 2) 2006 Well Visit 65+ 2021 Influenza Vaccine (#1) 2024 Fall Risk Assessment 03/25/2025 03/25/2024 Insurance QRGL PPO [facility] [address] [place] [id number] [employer] PPO Advance Directives For more information, please contact: [phone] * Full Code (Latest Code Status on File) Date Activated Date Inactivated Comments 03/22/2024 10:09 AM 03/25/2024 7:35 PM * Full Code Date Activated Date Inactivated Comments 03/20/2024 1:09 PM 03/22/2024 10:09 AM Care Teams Spring Coiling Machine Setter Relationship Specialty Start Date End Date Yumiko Quach NP PCP - General Family Medicine 04/05/20
--- OUTSIDE RECORDS SUMMARY | 2024-12-23 12:07 | XMS_ITS | Continuity of Care Document ---
Author Organization [facility] Address [address] [place] [address] Phone Care Team Providers Care Manager Assembly Name Role Phone Reji Hathaway DO Unavailable Unavailable Advance Directives Directive Yes / No Effective Date File Name No Information Encounters Encounter Description Practice Location Reason(s) For Visit Diagnoses Date Provider Providers Copied on Encounter [facility], [address], [place], [place], [id number], [place] tel:[phone] [facility] No Information [facility]. [address] [place], [address], [place]. tel:[phone] Referring Provider: Scottie Pires MD, [address] [place] [address], [address]. tel:[phone] Family History Family Member Type Diagnosis Age At Onset No Information Payers Payer name Insurance type Covered libertarian ID Authoriza tion(s) No Information Social History Type Description Quantity Date Captured [...]
--- OUTSIDE RECORDS SUMMARY | 2024-12-23 12:07 | XMS_ITS | Referral Summary ---
[facility] Address [address] [place] [address] Care Team Providers Care House Mother Name Role Phone Yumiko Quach NP Primary Care Provider [phone] Allergies Active Allergy Reactions Criticality Noted Date [...] (40 mg total) by mouth daily 06/01/20 Active Active Problems Problem Noted Date Diagnosed Date Abdominal pain 03/20/2024 Choledocholithiasis 03/20/2024 Social History Tobacco Use Types Packs/Day Years Used Date Smoking Tobacco: Never Passive Smoke Exposure: Never Smokeless Tobacco: Never Tobacco Cessation:Counseling Given: Not Answered Alcohol Use Standard Drinks/Week Comments No 0 (1 standard drink = 0.6 oz pur e alcohol) [facility] Utilities Answer Date Recorded In the past 12 months has [employer], gas, oil, or water [employer] threatened to shut off services in your [...] often do you attend chur ch or denominational services? More than 4 times per year 03/22/2024 Do you belong to any clubs o r organizations such as congregational groups, unions, fraternal or athletic groups, or [...] money to buy more. Never true 03/22/20 Within the past 12 months, t he [...] any time in the past 12 m [facility], were you homeless or living in a penitentiary (including now)? No 03/22/2024 Personal Safety Answer Date Recorded Have you ever been in or are you currently in a harmful physical or emotional relationship or is someone making you feel afraid or unsafe? 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 [employer] PPO Advance Directives For more information, please contact: [phone] * Full Code (Latest Code Status on File) Date Activated Date Inactivated Comments 03/22/2024 10:09 AM 03/25/2024 7:35 PM * Full Code Date Activated Date Inactivated Comments 03/20/2024 1:09 PM 03/22/2024 10:09 AM Care Teams House Mother Relationship Specialty Start Date End Date Yumiko Quach NP PCP - General Family Medicine 04/05/20
--- OUTSIDE RECORDS SUMMARY | 2024-12-23 12:07 | XMS_ITS | Clinical Summary ---
Author Organization [facility] Address [address], [address] [address] Phone Care Team Providers Care Food Beverage Supervisor Name Role Phone Bola Wright MD Primary Care Provider [phone] Allergies Active Allergy Reactions Criticality Noted Date Comments Other Anaphylaxis 02/04/2019 Muscle relaxer, sts robbed oxygen from body Medications omeprazole (PRILOSEC) 40 MG CAPSULE DELAYED RELEASE TAKE ONE CAPSULE BY MOUTH EVERY DAY 30 Cap 6 08/17/2019 Active Family History Medical History Relation Name Comments Heart Attack Father Cancer Maternal Aunt breast Cancer Mother leukemia Cancer Paternal Grandfather prostat e Relation Name Status Comments Father Maternal Aunt Mother Paternal Grandfather Social History Tobacco Use Types Packs/Day Years Used Date Smoking Tobacco: Never Smokeless Tobacco: Never Alcohol Use Standard Drinks/Week Comments Never 0 (1 standard drink = 0.6 oz pur e alcohol) [facility] Answer Date Recorded Frequency of Alcohol Consumption Never 02/04/2019 Average Number of Drinks Not on file 019 Frequency of Binge Drinking Not on file 05/2019 Comments Unknown Sex and Gender Information Value Date Recorded Sex Assigned at Not on file Legal Sex Female 9:15 AM CDT Gender Identity Not on file Sexual Orientation Not on file Last Filed Vital Signs Vital Sign Reading Time Taken Comments Blood Pressure - - Pulse - - Temperature - - Respiratory Rate - - Oxygen Saturation - - Inhaled Oxygen Concentration - - Weight 81.6 kg (180 lb) 02/04/2019 1:00 PM CDT Height 156.2 cm (5' 1.5 ) 02/04/2019 1:00 PM CDT Body Mass Index 33.46 02/04/2019 1:00 PM CDT Plan of Treatment Health Maintenance Due Date Last Done Comments DEXA Bone Density 1955 Hepatitis C Virus (HCV) Screening 1955 TdaP Immunization 1955 Cologuard 2006 Immunochemical Fecal Occult Blood 2006 Mammogram 2006 Pneumococcal Immunization (5 0+ years) (1 of 1 - PCV) 2006 Zoster Immunization (1 of 2) 2006 Influenza Immunization (#1) 2024 SARS-COV-2 Immunization ( - season) 2024 Colonoscopy 01/07/2029 01/07/2019 Colorectal Cancer Screening 01/07/2029 Respiratory Syncytial Virus (RSV) Immunization (Adult) (1 - 1-dose 75+ series) 2031 01/07/2019 Hepatitis B Immunization Aged Out No longer eligible based on patient's age to complete this topic Meningococcal Immunization (ACWY) Aged Out No longer eligible based on patient's age to complete this topic Rotavirus Immunization Aged Out No lo nger eligible based on patient's age to complete this topic Procedures Procedure Name Priority Date/Time Associated Diagnosis Comments COLONOSCOPY Routine 01/07/2019 from Last 3 Months or Most Recently Relevant to Health Maintenance Results * COLONOSCOPY (01/07/2019) Denton Teixeira DO PROCEDURE/MINOR SURGICAL ORDERA BLES Final Result from Last 3 Months or Most Recently Relevant to Health Maintenance Insurance [employer]ICA[employer] Care Teams Food Beverage Supervisor Relationship Specialty Start Date End Date Bola Wright MD [address] [place] [address] PCP - General Family Medicine 01/11/19
--- OUTSIDE RECORDS SUMMARY | 2024-12-23 12:07 | XMS_ITS | Clinical Summary ---
Author Organization [facility] [employer] Address [address] [place] [address] Care Team Providers Care Multiple Spindle Screw Machine Operator Name Role Phone Bola Wright MD Primary Care Provider [phone] Source Comments [facility],non-owned Affiliates and Associated Physician Practices is amultiple site organization consisting of ambulatory clinics and hospital sitesin [place], [place], [place] and [place]. This disclosure is being madepursuant to the Care Everywhere program and may not contain all information available regarding this patient. Last updated [employer] [facility] Allergies Active Allergy Reactions Criticality Noted Date Comments Other Shortness of Breath High 04/26/2013 A type of muscle relaxant. Medications * Be aware that medications may not be up to date on this document. Alwaysverify current medications with the patient. Medication Sig Dispensed Refills Start Date End Date Status amLODIPine (NORVASC) 10 MG tablet Take 10 mg by mouth once daily. Active valsartan-hydrochloroth iazide (DIOVAN HCT) 160-12.5 MG tablet Take 1 Tab by mouth once daily. Active lovastatin (MEVACOR) 20 MG tablet Take 20 mg by mouth at bedtime. Active Social History Tobacco Use Types Packs/Day Years Used Date Smoking Tobacco: Never Alcohol Use Standard Drinks/Week Comments No 0 (1 standard drink = 0.6 oz pur e alcohol) Sex and Gender Information Value Date Recorded Sex Assigned at Not on file Gender Identity Not on file Sexual Orientation Not on file Last Filed Vital Signs Vital Sign Reading Time Taken Comments Blood Pressure 135/85 04/26/2013 2:55 PM CDT Pulse 68 04/26/2013 2:55 PM CDT Temperature 36.4 C (97.6 F) 04/26/2013 2:48 PM CDT Respiratory Rate 18 04/26/2013 2:55 PM CDT Oxygen Saturation 95% 04/26/2013 2:55 PM CDT Inhaled Oxygen Concentration - - Weight 81.6 kg (180 lb) 04/26/2013 1:25 PM CDT Height 157.5 cm (5' 2 ) 04/26/2013 1:25 PM CDT Body Mass Index 32.92 04/26/2013 1:25 PM CDT Plan of Treatment Health Maintenance Due Date Last Done Comments BONE DENSITY TESTING 1955 COLOGUARD (AGES 45-75) - COL ON CA SCREENING 1956 CT COLONOGRAPHY - COLON CA SCREENING 1956 FIT - COLON CA SCREENING 1956 FLEX SIG - COLON CA SCREENING 1956 MAMMOGRAM 1956 HEPATITIS C SCREENING 04/04/1974 DTAP/TDAP/TD VACCINES (1 - Tdap) 1975 PNEUMOCOCCAL VACCINE 50+ (1 of 1 - PCV) 2006 ZOSTER VACCINE (1 of 2) 2006 COLON MONITORING 04/26/2023 04/26/2013 COLONOSCOPY - COLON CA SCREENING 04/26/2023 04/26/20 13 Colorectal Cancer Screening 04/26/2023 COVID-19 VACCINE (1 - 2023-2 5 season) 2024 INFLUENZA VACCINE (#1) 2024 DEPRESSION SCREENING 09/29/2024 Respiratory Syncytial Virus (RSV) Vaccine Pt: or over 60 yrs (1 - 1-dose 75+ series) 2031 HEPATITIS B VACCINE Aged Out No longe r eligible based on patient's age to complete this topic HIB VACCINE Aged Out No longer eligi ble based on patient's age to complete this topic HPV VACCINE Aged Out No longer eligi ble based on patient's age to complete this topic MENINGOCOCCAL (Group B) VACC INE SHARED DECISION-MAKING Aged Out No longer eligibl e based on patient's age to complete this topic MENINGOCOCCAL GROUPS A/C/Y/W VACCINE Aged Out No longer eligible b ased on patient's age to complete this topic Procedures Procedure Name Priority Date/Time Associated Diagnosis Comments ENDOSCOPY, COLON, SCREENING Routine 04/26/2013 1:55 PM CDT from Last 3 Months or Most Recently Relevant to Health Maintenance Results * ENDOSCOPY, COLON, SCREENING (04/26/2013 1:55 PM CDT) Report Endoscopy POC _ Patient Name: Bess Miranda Procedure Date: 04/26/2013 1:55 PM Date of : 1955 Admit Type: Outpatient Gender: Female Age: 58 Attending MD: Nickolas Liu MD _ Procedure: Colonoscopy Indications: High risk colon cancer surveillance: Personal history of colonic polyps Providers: Nickolas Liu MD (Doctor) Referring MD: Marino Rebollar (Referring MD) Medicines: Monitored Anesthesia Care Complications: No immediate complications. Estimated blood loss: None. _ Procedure: Pre-Anesthesia Assessment: - Prior to the procedure, a History and Physical was performed, and patient medications and allergies were reviewed. The patient is competent. The risks and benefits of the procedure and the sedation options and risks were discussed with the patient. All questions were answered and informed consent was obtained. Patient identification and proposed procedure were verified by the physician, the nurse and the polymer scientist in the procedure room. Mental Status Examination: alert and oriented. Airway Examination: normal oropharyngeal airway and neck mobility. Respiratory Examination: clear to auscultation. CV Examination: normal. Prophylactic Antibiotics: The patient does not require prophylactic antibiotics. Prior Anticoagulants: The patient has taken no previous anticoagulant or antiplatelet agents. ASA Grade Assessment: II - A patient with mild systemic disease. After reviewing the risks and benefits, the patient was deemed in satisfactory condition to undergo the procedure. The anesthesia plan was to use monitored anesthesia care (MAC). Immediately prior to administration of medications, the patient was re-assessed for adequacy to receive sedatives. The heart rate, respiratory rate, oxygen saturations, blood pressure, adequacy of pulmonary ventilation, and response to care were monitored throughout the procedure. The physical status of the patient was re-assessed after the procedure. After I obtained informed consent, the scope was passed under direct vision. Throughout the procedure, the patient's blood pressure, pulse, and oxygen saturations were monitored continuously. The Colonoscope was introduced through the anus and advanced to the cecum, identified by appendiceal orifice & ileocecal valve. The colonoscopy was performed without difficulty. The patient tolerated the procedure well. The quality of the bowel preparation was excellent. Findings: The digital rectal exam was normal. Pertinent negatives include no palpable rectal lesions. Multiple small-mouthed diverticula were found in the sigmoid colon and in the ascending colon. A sessile polyp was found in the mid ascending colon. The polyp was 5 mm in size. The polyp was removed with a hot snare. Resection and retrieval were complete. A pedunculated polyp was found in the proximal sigmoid colon. The polyp was 12 mm in size. The polyp was removed with a hot snare. Resection and retrieval were complete. A benign appearing flat polyp was found in the rectum. The polyp was 3 mm in size. The polyp was removed with a cold biopsy forceps. Resection and retrieval were complete. The cecum appeared normal. _ Impression: - Diverticulosis in the sigmoid colon and in the ascending colon. - One 5 mm polyp in the mid ascending colon. Resected and retrieved. - One 12 mm polyp in the proximal sigmoid colon. Resected and retrieved. - One 3 mm polyp in the rectum. Resected and retrieved. - The cecum is normal. Recommendation: - Await pathology results. - Repeat colonoscopy in 3 years for surveillance. - Return to primary care physician as previously scheduled. - High fiber diet indefinitely. Dr. Nickolas Liu MD Nickolas Liu MD 04/26/2013 2:44 PM This report has been signed electronically. Number of Addenda: 0 Note Initiated On: 04/26/2013 1:55 PM [facility] ENDOSCOPY 04/26/2013 1:55 PM CDT Narrative [facility] ENDOSCOPY - 04/26/2013 2:47 PM CDT Procedure Note Nickolas Liu MD - 04/26/2013 2:47 PM CDT Nickolas Liu MD GI PROCEDURE ORDERA BLES [facility] [place] [address] from Last 3 Months or Most Recently Relevant to Health Maintenance Care Teams Multiple Spindle Screw Machine Operator Relationship Specialty Start Date End Date Bola Wright MD [address] [place] [address] PCP - General 01/19/19
== END 2024-12-23 10:55 | disposition home or self-care (01) ==
PROVIDERS: PCP Family Medicine; Visit Provider Nurse Practitioner Family
DX: M85.852 Other specified disorders of bone density and structure, left thigh (principal); M85.851 Other specified disorders of bone density and structure, right thigh; Z78.0 Asymptomatic menopausal state
CPT/HCPCS: 77080

== ENCOUNTER 2024-12-29 13:26 | Outpatient (RCR) | payer MEDICARE, SELFPAY ==
[2024-12-29 13:30] VITALS: BMI 33.1
== END 2025-03-21 14:04 | disposition home or self-care (01) ==
LOC: ANHDMC 13:26
PROVIDERS: PCP Family Medicine; Visit Provider Family Medicine
DX: E11.9 Type 2 diabetes mellitus without complications (principal); Z71.3 Dietary counseling and surveillance
CPT/HCPCS: 97802

== ENCOUNTER 2025-02-28 12:47 | Outpatient (CLI) | payer MEDICARE, SELFPAY ==
--- OUTSIDE RECORDS SUMMARY | 2025-02-28 12:54 | XMS_ITS | Clinical Summary ---
Author Organization [facility] [place] Address [address] [place] [address] Care Team Providers Care Proof Coins Inspector Name Role Phone Bola Wright MD Primary Care Provider [phone] Source Comments [facility],non-owned Affiliates and Associated Physician Practices is amultiple site organization consisting of ambulatory clinics and hospital sitesin [place], [place], [place] and [place]. This disclosure is being madepursuant to the Care Everywhere program and may not contain all information available regarding this patient. Last updated 18.[facility] Allergies Active Allergy Reactions Criticality Noted Date Comments Other Shortness of Breath High 04/26/2013 A type of muscle relaxant. Medications * Be aware that medications may not be up to date on this document. Alwaysverify current medications with the patient. amLODIPine (NORVASC) 10 MG tablet Take 10 mg by mouth once daily. Active valsartan-hydroc hlorothiazide (DIOVAN HCT) 160-12.5 MG tablet Take 1 Tab by mouth once daily. Active lovastatin (MEVACOR) 20 MG tablet Take 20 mg by mouth at bedtime. Active Social History Tobacco Use Types Packs/Day Years Used Date Smoking Tobacco: Never Alcohol Use Standard Drinks/Week Comments No 0 (1 standard drink = 0.6 oz pur e alcohol) Comments No Sex and Gender Information Value Date Recorded Sex Assigned at Not on file Legal Sex Female 10:03 AM CDT Gender Identity Not on file [...] 1:25 PM CDT Height 157.5 cm (5' 2) 04/26/2013 1:25 PM CDT Body Mass Index [...] VACCINE (1 - 2023-2 5 season) 2024 DEPRESSION SCREENING 09/29/2024 INFLUENZA VACCINE (Season Ended) 2025 Respiratory Syncytial Virus (RSV) Vaccine Pt: or [...] Report Endoscopy POC _ Patient Name: Bess Jackson Procedure Date: 04/26/2013 1:55 PM Date of [...] by the physician, the nurse and the web press operator in the procedure room. Mental Status Examination: [...] 0 Note Initiated On: 04/26/2013 1:55 PM [facility] 04/26/2013 1:55 PM CDT Narrative [facility] - 04/26/2013 2:47 PM CDT Procedure Note Nickolas Liu MD - 04/26/2013 2:47 PM CDT us Nickolas Liu MD GI PROCEDURE ORDERABLES [facility] Organization Address City/State/ZIP Co de Phone Number [facility] [place] [address] from Last 3 Months or Most Recently Relevant to Health Maintenance Insurance [facility] [employer] Care Teams Proof Coins Inspector Relationship Specialty Start Date End Date Bola Wright MD [address] [place] [address] PCP - General 01/19/19
--- OUTSIDE RECORDS SUMMARY | 2025-02-28 12:54 | XMS_ITS | Referral Summary ---
Author Organization [facility] Address [address] [place] [address] Care Team Providers Care Tablet Technician Name Role Phone Yumiko Quach NP Primary Care Provider [phone] Allergies Active Allergy Reactions Criticality Noted Date [...] drink = 0.6 oz pur e alcohol) [facility] Utilities Answer Date Recorded In the past 12 months has [employer], gas, oil, or water [employer] threatened to shut off services in your [...] often do you attend chur ch or religion services? More than 4 times per year 03/22/2024 Do you belong to any clubs o r organizations such as judaism groups, unions, fraternal or athletic groups, or [...] any time in the past 12 m [facility], were you homeless or living in a retirement (including now)? No 03/22/2024 Personal Safety Answer Date Recorded Have you ever been in or are you currently in a harmful physical or emotional relationship or is someone making you feel afraid or unsafe? 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 Gender Identity Not on file Sexual Orientation [...] 9:30 AM CDT Height 156.2 cm (5' 1.5) 07/19/2024 9:30 AM CDT Body Mass Index 30.49 07/19/2024 9:30 AM CDT Plan of Treatment Not on file Insurance [employer] PPO [facility] [employer] PPO Advance Directives For more information, please contact: [phone] * Full Code (Latest Code Status on File) Date Activated Date Inactivated Comments 03/22/2024 10:09 AM 03/25/2024 7:35 PM * Full Code Date Activated Date Inactivated Comments 03/20/2024 1:09 PM 03/22/2024 10:09 AM Care Teams Tablet Technician Relationship Specialty Start Date End Date Yumiko Quach NP PCP - General Family Medicine 04/05/20
--- OUTSIDE RECORDS SUMMARY | 2025-02-28 12:54 | XMS_ITS | Clinical Summary ---
Author Organization [facility] Address [address] [place] [address] Care Team Providers Care Maintenance Mechanic Engine Name Role Phone Yumiko Quach NP Primary Care Provider [phone] Allergies Active Allergy Reactions Criticality Noted Date [...] drink = 0.6 oz pur e alcohol) [facility] Utilities Answer Date Recorded In the past 12 months has [employer], gas, oil, or water [employer] threatened to shut off services in your [...] often do you attend chur ch or church services? More than 4 times per year 03/22/2024 Do you belong to any clubs o r organizations such as restorationist groups, unions, fraternal or athletic groups, or [...] any time in the past 12 m [facility], were you homeless or living in a group home (including now)? No 03/22/2024 Personal Safety Answer Date Recorded Have you ever been in or are you currently in a harmful physical or emotional relationship or is someone making you feel afraid or unsafe? 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 Gender Identity Not on file Sexual [...] of 2) 2006 Well Visit 65+ 2021 Fall Risk Assessment 03/25/2025 03/25/2024 Influenza Vaccine (Season Ended) 2025 Insurance [employer] PPO [facility] [address] [place] [id number] [employer] P[employer] Advance Directives For more information, please contact: [phone] * Full Code (Latest Code Status on File) Date Activated Date Inactivated Comments 03/22/2024 10:09 AM 03/25/2024 7:35 PM * Full Code Date Activated Date Inactivated Comments 03/20/2024 1:09 PM 03/22/2024 10:09 AM Care Teams Maintenance Mechanic Engine Relationship Specialty Start Date End Date Yumiko Quach NP PCP - General Family Medicine 04/05/20
--- OUTSIDE RECORDS SUMMARY | 2025-02-28 12:54 | XMS_ITS | CONTINUITY OF CARE DOCUMENT ---
Author Name griselda villalobos Address Unknown Organization [facility] Address [address] [place] [address] Phone [phone] Care Team Providers Care Granite Polisher Name Role Phone griselda villalobos Unavailable Unavailable INSURANCE PROVIDERS Payer name Policy type / Coverage type [employer] party ID [employer] insurance company [id number]
--- OUTSIDE RECORDS SUMMARY | 2025-02-28 12:54 | XMS_ITS | Clinical Summary ---
Author Organization [facility] Address [address] [place], [address] [address] Phone Care Team Providers Care Oenologist Name Role Phone Bola Wright MD Primary Care Provider [phone] Allergies Active Allergy Reactions Criticality Noted Date [...] 1:00 PM CDT Height 156.2 cm (5' 1.5) 02/04/2019 1:00 PM CDT Body Mass Index [...] Recently Relevant to Health Maintenance Insurance MEDICAID [employer] Care Teams Oenologist Relationship Specialty Start Date End Date Bola Wright MD [address] [place] [address] PCP - General Family Medicine 01/11/19
[2025-02-28 14:23] LABS: Basophils Percent Auto 0.3 % (0.2-1.2); Eosinophils Absolute Auto 0.3 K/mm3 (0-0.3); Eosinophils Percent Auto 2.7 % (0-4.4); Hematocrit 45.1 % (37.0-47.0); Hemoglobin 14.5 g/dL (12.0-15.0); Immature Granulocyte Absolute 0.03 K/mm3 (0.00-0.031); Immature Granulocyte Percent A 0.3 % (0-0.5); Lymphocytes Absolute Auto 2.17 K/mm3 (0.9-3.2); Lymphocytes Percent Auto 23.6 % (18.3-44.2); Mean Corpuscular HGB Conc 32.2 g/dl (32-36); Mean Corpuscular Hemoglobin 29.7 pg (26-34); Mean Corpuscular Volume 92.2 fl (80-100); Mean Platelet Volume 11.7 fl (7.4-10.4); Monocytes Absolute Auto 0.9 K/mm3 (0.1-0.6); Monocytes Percent Auto 9.4 % (2.6-8.5); Neutrophils Absolute Auto 5.9 K/mm3 (1.3-6.7); Neutrophils Percent Auto 63.7 % (45.5-73.1); Platelet Count Result 233 k/mm3 (150-375); Red Blood Count 4.89 M/mm3 (4.2-5.4); Red Cell Distribution Width 13.2 % (11.5-14.5); White Blood Count 9.2 K/mm3 (4.5-10.0)
[2025-02-28 14:33] LABS: Alanine Aminotransferase 70 U/L (6-35); Albumin Level 4.5 g/dL (3.5-5.1); Alkaline Phosphatase 83 U/L (38-126); Anion Gap 9 mmol/L (4-12); Aspartate Amino Transferase 67 U/L (14-36); Bilirubin,Total 0.6 mg/dL (0.2-1.3); Blood Urea Nitrogen 18 mg/dL (7-17); Calcium 10.2 mg/dL (8.4-10.2); Carbon Dioxide 31 mmol/L (22-30); Chloride 101 mmol/L (98-107); Cholesterol 265 mg/dL (0-200); Estimated Glomerular Filt Rate > 60; Glucose 121 mg/dL (65-110); HDL Direct 46 mg/dL; Potassium 4.5 mmol/L (3.4-5.0); Sodium 141 mmol/L (137-145); Triglycerides 240 mg/dL (<150)
[2025-02-28 14:43] LABS: LDL Cholesterol Direct 158 mg/dL
[2025-02-28 15:24] LABS: Creatinine Urine 99.9 mg/dL
[2025-02-28 15:27] LABS: MALB Creatinine Ratio 24.4 mg/g (0-30); Microalbumin Urine Random 24.4 mg/L (0-16.7)
[2025-02-28 16:00] LABS: Vitamin D 25 Hydroxy 35.5 ng/mL
[2025-02-28 21:21] LABS: Hemoglobin A1C 6.6 % (<5.7)
== END 2025-02-28 12:48 | disposition home or self-care (01) ==
LOC: ANHGOSHLAB 12:48
PROVIDERS: PCP Family Medicine; Visit Provider Nurse Practitioner Family
DX: E55.9 Vitamin D deficiency, unspecified (principal); E11.9 Type 2 diabetes mellitus without complications; I10 Essential (primary) hypertension
CPT/HCPCS: 36415; 80053; 80061; 82043; 82306; 83036; 84443; 85025